=== PATIENT | female | born 1945 | race Caucasian/White ===

== ENCOUNTER 2017-03-11 12:42 | Emergency (ER) | payer MEDICARE, MEDICAID ==
[~2017-03-11] VITALS: Ht 162.6 cm; Wt 52.0 kg
[2017-03-11] MEDS ORDERED: AZIT250T6 PO (12:53)
[2017-03-11] MEDS ORDERED: LABE100T PO (12:53)
[2017-03-11] MEDS ORDERED: TRIA15OI8 TP (12:53)
[2017-03-11] MEDS ORDERED: SODIUM CHLORIDE 0.9% 1,000 ML IV ONE (13:32)
[2017-03-11 14:45] LABS: BASOPHILS % 0.2 % (0.0-2.0); EOSINOPHILS % 0.3 % (0.0-5.0); HEMATOCRIT. 41.4 % (36.0-48.0); LYMPHOCYTES % 7.6 % (20.0-50.0); MEAN CORPUSCULAR HEMOGLOBIN 28.6 pg (28.0-32.0); MEAN CORPUSCULAR VOLUME 84.4 fL (81.0-99.0); MEAN PLATELET VOLUME 9.3 fl (7.4-10.4); MONOCYTES % 4.7 % (2.0-8.0); NEUTROPHILS % 87.2 % (40.0-76.0); PLATELET 167 x1000/uL (130-400); RED BLOOD CELL COUNT 4.91 mill/uL (4.2-5.4); RED CELL DISTRIBUTION WIDTH 12.8 % (11.6-14.6)
[2017-03-11 14:49] LABS: CHLORIDE 101 mEq/L (98-107)
[2017-03-11 14:57] LABS: CARBON DIOXIDE 30 mEq/L (21-32)
[2017-03-11 17:53] VITALS: BP 149/75
== END 2017-03-11 18:06 | disposition home or self-care (01) ==
LOC: ER 12:42
DX: B34.9 Viral infection, unspecified (principal); E78.00 Pure hypercholesterolemia, unspecified; J44.9 Chronic obstructive pulmonary disease, unspecified
CPT/HCPCS: 36415; 71010; 80053; 85025; 87040; 96360; 96361; 99285; J7030

== ENCOUNTER 2023-05-25 19:01 | Emergency (ER) | payer MEDICARE, MEDICAID ==
[~2023-05-25] VITALS: Ht 157.5 cm; Wt 45.1 kg
[~2023-05-25 19:01] MED LIST: AZIT250T12 PO; LABE100T9 PO; TRIA15OI8 TP
[2023-05-25 19:19] VITALS: O2SAT 97
[2023-05-25 21:14] LABS: BASOPHILS % 0.4 % (0.0-2.0); EOSINOPHILS % 2.5 % (0.0-5.0); HEMATOCRIT. 41.9 % (36.0-48.0); HEMOGLOBIN. 13.7 g/dL (12.0-16.0); LYMPHOCYTES % 23.5 % (20.0-50.0); MEAN CORPUSCULAR HEMOGLOBIN 28.8 pg (28.0-32.0); MEAN CORPUSCULAR HGB CONC 32.8 g/dL (31.0-37.0); MEAN CORPUSCULAR VOLUME 87.9 fL (81.0-99.0); MEAN PLATELET VOLUME 9.4 fl (7.4-10.4); MONOCYTES % 8.8 % (2.0-8.0); NEUTROPHILS % 64.8 % (40.0-76.0); PLATELET 194 x1000/uL (130-400); RED BLOOD CELL COUNT 4.77 mill/uL (4.2-5.4); RED CELL DISTRIBUTION WIDTH 13.1 % (11.6-14.6); WHITE BLOOD COUNT 5.5 x1000/uL (4.5-11.0)
[2023-05-25 21:25] LABS: PROTHROMBIN TIME 10.7 sec (9.6-11.0)
[2023-05-25 22:00] LABS: ALANINE AMINOTRANSFERASE 11 IU/L (10-49); ALBUMIN 4.2 g/dL (3.2-4.8); ASPARTATE AMINOTRANSFERASE 20 IU/L (<34); CALCIUM 9.9 mg/dL (8.7-10.4); CARBON DIOXIDE 26 mEq/L (21-32); CHLORIDE 104 mEq/L (98-107); CREATININE 0.4 mg/dL (0.6-1.0); GLUCOSE 102 mg/dL (70-105); POTASSIUM 3.5 mEq/L (3.5-5.1); PROTEIN TOTAL 8.2 g/dL (6.0-8.3); SODIUM 138 mEq/L (136-145); TROPONIN I HIGH SENSITIVITY 6 ng/L (3.0-34); UREA NITROGEN BLOOD 13 mg/dL (9-23)
[2023-05-25 22:26] LABS: CLARITY URINE CLEAR (CLEAR); COLOR URINE YELLOW (YELLOW); GLUCOSE URINE NEGATIVE (NEGATIVE); KETONES URINE 1+ (NEGATIVE); LEUKOCYTE ESTERASE URINE TRACE (NEGATIVE); NITRITE URINE NEGATIVE (NEGATIVE); OCCULT BLOOD URINE NEGATIVE (NEGATIVE); PH URINE 6.5 (4.5-8.0); PROTEIN URINE 1+ (NEGATIVE); SPECIFIC GRAVITY URINE 1.013 (1.005-1.030); UROBILINOGEN URINE 0.2 E.U./dL (0.2-1.0)
[2023-05-25 22:43] LABS: BACTERIA URINE 1+
[2023-05-25 22:44] LABS: RBC URINE 0-2 /hpf (0-2); SQUAMOUS EPITHELIAL CELL URINE 1+ /lpf (RARE/1+); WBC URINE 0-2 /hpf (0-2)
[2023-05-26] MEDS ORDERED: POLY119P2 MT (00:17)
[2023-05-26 00:40] VITALS: BP 128/68; PULSE 70; RESP 16; TEMP 97.1
== END 2023-05-26 00:42 | disposition home or self-care (01) ==
LOC: ER 19:01
DX: R10.31 Right lower quadrant pain (principal); J44.9 Chronic obstructive pulmonary disease, unspecified; I10 Essential (primary) hypertension
CPT/HCPCS: 36415; 74177; 80053; 81003; 84484; 85025; 93005; 99285

== ENCOUNTER 2024-01-06 12:53 | Inpatient (IN) | payer MEDICARE, MEDICAID ==
[~2024-01-06] VITALS: Ht 165.1 cm; Wt 48.1 kg
[~2024-01-06 12:53] MED LIST changes: +POLY119P2 MT
[2024-01-06 13:26] LABS: HEMATOCRIT. 39.2 % (36.0-48.0); HEMOGLOBIN. 13.6 g/dL (12.0-16.0); MEAN CORPUSCULAR HGB CONC 34.8 g/dL (31.0-37.0); MEAN CORPUSCULAR VOLUME 86.4 fL (81.0-99.0); MEAN PLATELET VOLUME 9.8 fl (7.4-10.4); PLATELET 246 x1000/uL (130-400); RED BLOOD CELL COUNT 4.53 mill/uL (4.2-5.4); RED CELL DISTRIBUTION WIDTH 12.5 % (11.6-14.6); WHITE BLOOD COUNT 13.8 x1000/uL (4.5-11.0)
[2024-01-06 13:31] LABS: DIFFERENTIAL COMMENT 1
[2024-01-06] MEDS: ALBUTEROL (0.083%) 2.5MG/3ML NEB HHN STA (13:39)
[2024-01-06 13:40] VITALS: PULSE 99; RESP 20; O2SAT 95
[2024-01-06] MEDS: IPRATROPIUM BROMIDE (0.02%) 0.5MG/2.5ML NEB HHN STA (13:40)
[2024-01-06] MEDS: METHYLPREDNISOLONE SOD SUCC 125MG/2ML (ACT-O-VIAL) IV STA (13:40)
[2024-01-06 14:31] LABS: CARBON DIOXIDE 27 mEq/L (21-32); CHLORIDE 98 mEq/L (98-107); POTASSIUM 4.1 mEq/L (3.5-5.1); SODIUM 134 mEq/L (136-145)
[2024-01-06 14:32] LABS: CALCIUM 9.5 mg/dL (8.7-10.4)
[2024-01-06 14:36] LABS: CREATININE 0.6 mg/dL (0.6-1.0)
[2024-01-06 14:37] LABS: GLUCOSE 116 mg/dL (70-105); TROPONIN I HIGH SENSITIVITY 7 ng/L (3.0-34); UREA NITROGEN BLOOD 16 mg/dL (9-23)
[2024-01-06 15:31] LABS: PLATELET ESTIMATE NORMAL
[2024-01-06] MEDS ORDERED: IPRATROPIUM BROMIDE (0.02%) 0.5MG/2.5ML NEB HHN PRN (16:00)
[2024-01-06] MEDS ORDERED: MAGNESIUM/ALUMINUM HYDROXIDE/SIMETHICONE 30ML UDC PO PRN (16:00)
[2024-01-06] MEDS ORDERED: LORAZEPAM 0.5MG TABLET PO PRN (16:00)
[2024-01-06] MEDS ORDERED: CLONIDINE 0.1MG TABLET PO PRN (16:00)
[2024-01-06] MEDS ORDERED: ACETAMINOPHEN 325MG TABLET PO PRN ×2 (16:00)
[2024-01-06] MEDS ORDERED: DIPHENHYDRAMINE 50MG/ML VIAL IV PRN (16:00)
[2024-01-06] MEDS: SODIUM CHLORIDE 0.9% 1000ML BAG (SEPSIS BOLUS) IV ONE (16:28)
[2024-01-06] MEDS: DILTIAZEM HCL 5MG/ML 5ML VIAL IV NR (16:40)
[2024-01-06] MEDS: CEFTRIAXONE 2GM/50ML 50 ML IV ONE (16:41)
[2024-01-06 16:55] LABS: LACTIC ACID 2.7 mmol/L (0.4-2.0)
[2024-01-06] MEDS ORDERED: DEXTROSE 50% WATER 50ML SYRINGE IV PRN (17:15)
[2024-01-06 17:38] LABS: CLARITY URINE CLEAR (CLEAR); COLOR URINE YELLOW (YELLOW); GLUCOSE URINE 2+ (NEGATIVE); KETONES URINE 2+ (NEGATIVE); LEUKOCYTE ESTERASE URINE NEGATIVE (NEGATIVE); NITRITE URINE NEGATIVE (NEGATIVE); OCCULT BLOOD URINE 3+ (NEGATIVE); PROTEIN URINE 3+ (NEGATIVE); SPECIFIC GRAVITY URINE 1.011 (1.005-1.030)
[2024-01-06 17:57] LABS: BACTERIA URINE 2+; SQUAMOUS EPITHELIAL CELL URINE FEW /lpf (RARE/1+)
[2024-01-06 17:58] LABS: MUCUS URINE 2+ /lpf (< = 2+); RBC URINE 15-25 /hpf (0-2); WBC URINE 0-2 /hpf (0-2)
[2024-01-06] MEDS: AZITHROMYCIN 500MG/250ML 250 ML IV SCH (18:53)
[2024-01-06] MEDS: ENOXAPARIN 60MG/0.6ML SYR SUBCUT NR (20:07)
[2024-01-06 20:50] VITALS: BP 128/54; PULSE 74; RESP 18; TEMP 98
[2024-01-06] MEDS: BLOOD SUGAR DIAGNOSTIC STRIP TEST SCH (21:00)
[2024-01-06 21:15] VITALS: BP 102/42; PULSE 68; RESP 18; TEMP 97.5
[2024-01-06 21:20] VITALS: BP 102/42; PULSE 68; RESP 18; TEMP 97.5
[2024-01-06 22:16] LABS: PROTHROMBIN TIME 11.4 sec (9.6-11.0)
[2024-01-06] MEDS: METHYLPREDNISOLONE SOD SUCC 40MG/ML (ACT-O-VIAL) IV SCH (22:51)
[2024-01-07] VITALS: BP 107/43; PULSE 68; RESP 20; TEMP 98.4
[2024-01-07] MEDS: GUAIFENESIN 200MG/10ML SUGAR FREE UDC PO PRN (01:05)
[2024-01-07] MEDS ORDERED: ERGO1250 (03:37)
[2024-01-07] MEDS ORDERED: LEVO250T74 MT (03:37)
[2024-01-07] MEDS ORDERED: AMLO10TA80 MT (03:37)
[2024-01-07] MEDS ORDERED: AMLO5TAB88 MT (03:40)
[2024-01-07 04:00] VITALS: BP 99/60; PULSE 58; RESP 18; TEMP 96.4
[2024-01-07 06:54] LABS: CHLORIDE 102 mEq/L (98-107); POTASSIUM 3.6 mEq/L (3.5-5.1); SODIUM 137 mEq/L (136-145)
[2024-01-07 06:55] LABS: CALCIUM 9.5 mg/dL (8.7-10.4); CARBON DIOXIDE 28 mEq/L (21-32)
[2024-01-07 07:00] LABS: CREATININE 0.6 mg/dL (0.6-1.0); GLUCOSE 160 mg/dL (70-105); UREA NITROGEN BLOOD 18 mg/dL (9-23)
[2024-01-07 07:04] LABS: T4 FREE 1.08 ng/dL (0.89-1.76); THYROID STIMULATING HORMONE 0.64 uIU/mL (0.55-4.78)
[2024-01-07 07:09] LABS: HEMATOCRIT. 35.5 % (36.0-48.0); HEMOGLOBIN. 11.8 g/dL (12.0-16.0); MEAN CORPUSCULAR HEMOGLOBIN 28.7 pg (28.0-32.0); MEAN CORPUSCULAR HGB CONC 33.3 g/dL (31.0-37.0); MEAN PLATELET VOLUME 10.4 fl (7.4-10.4); PLATELET 191 x1000/uL (130-400); RED BLOOD CELL COUNT 4.12 mill/uL (4.2-5.4); RED CELL DISTRIBUTION WIDTH 12.6 % (11.6-14.6)
[2024-01-07 07:19] LABS: DIFFERENTIAL COMMENT 1
[2024-01-07 08:00] VITALS: BP 128/60; PULSE 70; RESP 18; TEMP 98.6
[2024-01-07] MEDS: AMLODIPINE 5MG TABLET PO SCH (09:13)
[2024-01-07] MEDS: ENOXAPARIN 60MG/0.6ML SYR SUBCUT SCH (09:16)
[2024-01-07 12:00] VITALS: BP 132/69; PULSE 72; RESP 18; TEMP 97.1
[2024-01-07 14:34] LABS: CLARITY URINE CLEAR (CLEAR); COLOR URINE YELLOW (YELLOW); GLUCOSE URINE TRACE (NEGATIVE); KETONES URINE NEGATIVE (NEGATIVE); LEUKOCYTE ESTERASE URINE TRACE (NEGATIVE); NITRITE URINE NEGATIVE (NEGATIVE); OCCULT BLOOD URINE 1+ (NEGATIVE); PH URINE 6.5 (4.5-8.0); PROTEIN URINE 1+ (NEGATIVE)
[2024-01-07 15:19] LABS: *AMPHETAMINES SCREEN URINE NEGATIVE (NEGATIVE); *BARBITURATES SCREEN URINE NEGATIVE (NEGATIVE); *BENZODIAZEPINES SCREEN URINE NEGATIVE (NEGATIVE); *COCAINE SCREEN URINE NEGATIVE (NEGATIVE); CANNABINOID URINE SCREEN NEGATIVE (NEGATIVE); ECSTASY MDMA SCREEN URINE NEGATIVE (NEGATIVE); METHADONE URINE SCREEN NEGATIVE (NEGATIVE); OPIATES URINE SCREEN NEGATIVE (NEGATIVE); PHENCYCLIDINE URINE SCREEN NEGATIVE (NEGATIVE)
[2024-01-07 15:33] LABS: FINE GRANULAR CASTS URINE 0-5 /lpf; SQUAMOUS EPITHELIAL CELL URINE 1+ /lpf (RARE/1+)
[2024-01-07 15:35] LABS: BACTERIA URINE NONE SEEN; RBC URINE 0-2 /hpf (0-2)
[2024-01-07 16:00] VITALS: BP 104/51; PULSE 78; RESP 18; TEMP 97.5
[2024-01-07 16:43] LABS: PLATELET ESTIMATE NORMAL
[2024-01-07] MEDS: AZITHROMYCIN 500MG/250ML 250 ML IV SCH (19:23)
[2024-01-07 20:00] VITALS: BP 116/64; PULSE 92; RESP 18; TEMP 97.5
[2024-01-07] MEDS: ATORVASTATIN CALCIUM 40MG TABLET PO SCH (21:04)
[2024-01-07] MEDS ORDERED: IOHEXOL-350 100 ML BOTTLE ONE (21:44)
[2024-01-07] MEDS ORDERED: IPRATROPIUM/ALBUTEROL 0.5-3(2.5)MG/3ML NEB HHN PRN (23:15)
[2024-01-08] VITALS (10 sets, daily range): BP systolic 100–129; BP diastolic 42–59; PULSE 56–89; RESP 18–20; TEMP 96.3–98.1; O2SAT 93
[2024-01-08] MEDS: ACETYLCYSTEINE 200MG/ML 20% VIAL 4ML INH SCH (03:30)
[2024-01-08] MEDS: DOCUSATE SODIUM 100MG CAPSULE PO PRN (08:36)
[2024-01-08] MEDS: IPRATROPIUM/ALBUTEROL 0.5-3(2.5)MG/3ML NEB HHN SCH (09:20)
[2024-01-08] MEDS: PIPERACILLIN/TAZO 3.375G/50ML 50 ML IV SCH (12:28)
[2024-01-08 13:12] LABS: HEMATOCRIT. 39.2 % (36.0-48.0); HEMOGLOBIN. 12.8 g/dL (12.0-16.0); MEAN CORPUSCULAR HEMOGLOBIN 28.5 pg (28.0-32.0); MEAN CORPUSCULAR HGB CONC 32.6 g/dL (31.0-37.0); MEAN CORPUSCULAR VOLUME 87.3 fL (81.0-99.0); MEAN PLATELET VOLUME 10.1 fl (7.4-10.4); PLATELET 253 x1000/uL (130-400); RED BLOOD CELL COUNT 4.49 mill/uL (4.2-5.4); RED CELL DISTRIBUTION WIDTH 12.9 % (11.6-14.6)
[2024-01-08 13:15] LABS: DIFFERENTIAL COMMENT 1
[2024-01-08 13:16] LABS: CHLORIDE 96 mEq/L (98-107); POTASSIUM 3.3 mEq/L (3.5-5.1); SODIUM 131 mEq/L (136-145)
[2024-01-08 13:17] LABS: CARBON DIOXIDE 25 mEq/L (21-32)
[2024-01-08 13:18] LABS: CALCIUM 9.3 mg/dL (8.7-10.4)
[2024-01-08 13:22] LABS: CREATININE 0.7 mg/dL (0.6-1.0); GLUCOSE 307 mg/dL (70-105)
[2024-01-08 13:23] LABS: UREA NITROGEN BLOOD 24 mg/dL (9-23)
[2024-01-08] MEDS: POTASSIUM CHLORIDE 20MEQ TABLET SR PO NR (14:44)
[2024-01-08] MEDS ORDERED: CEFTRIAXONE 1GM/50ML 50 ML IV SCH (16:00)
[2024-01-08] MEDS: METHYLPREDNISOLONE SOD SUCC 40MG/ML (ACT-O-VIAL) IV SCH (17:09)
[2024-01-08] MEDS ORDERED: METHYLPREDNISOLONE SOD SUCC IV ONE (18:00)
[2024-01-08] MEDS ORDERED: DEXT 5% IV ONE (18:00)
[2024-01-08] MEDS ORDERED: WATER IV ONE (18:00)
[2024-01-08 19:37] LABS: PLATELET ESTIMATE NORMAL
[2024-01-08 22:00] LABS: POTASSIUM 3.6 mEq/L (3.5-5.1)
[2024-01-09] VITALS (11 sets, daily range): BP systolic 103–134; BP diastolic 45–66; PULSE 61–71; RESP 18–19; TEMP 97.1–98.1; O2SAT 94–97
[2024-01-09 07:56] LABS: DIFFERENTIAL COMMENT 1; HEMATOCRIT. 35.6 % (36.0-48.0); HEMOGLOBIN. 11.7 g/dL (12.0-16.0); MEAN CORPUSCULAR HEMOGLOBIN 28.6 pg (28.0-32.0); MEAN CORPUSCULAR VOLUME 86.6 fL (81.0-99.0); MEAN PLATELET VOLUME 10.5 fl (7.4-10.4); PLATELET 220 x1000/uL (130-400); RED BLOOD CELL COUNT 4.11 mill/uL (4.2-5.4); RED CELL DISTRIBUTION WIDTH 12.6 % (11.6-14.6); WHITE BLOOD COUNT 12.7 x1000/uL (4.5-11.0)
[2024-01-09 08:38] LABS: CHLORIDE 103 mEq/L (98-107); POTASSIUM 3.6 mEq/L (3.5-5.1); SODIUM 138 mEq/L (136-145)
[2024-01-09 08:39] LABS: CARBON DIOXIDE 28 mEq/L (21-32)
[2024-01-09 08:40] LABS: CALCIUM 9.2 mg/dL (8.7-10.4)
[2024-01-09 08:44] LABS: CREATININE 0.7 mg/dL (0.6-1.0); GLUCOSE 141 mg/dL (70-105); UREA NITROGEN BLOOD 21 mg/dL (9-23)
[2024-01-09] MEDS: APIXABAN 5 MG TABLET PO SCH (10:55)
[2024-01-09 15:54] LABS: PLATELET ESTIMATE NORMAL
[2024-01-10] VITALS: BP 120/62; PULSE 66; RESP 20; TEMP 97.1
[2024-01-10 08:00] VITALS: BP 140/78; PULSE 61; RESP 20; TEMP 97.8
[2024-01-10 11:00] VITALS: BP 140/89; PULSE 85; TEMP 98.1; O2SAT 96
== END 2024-01-10 16:45 | disposition home or self-care (01) | DRG 871 ==
LOC: ER 12:53 → 5WST 15:40 → EDBEDREQ 15:52 → EDBEDREQTM 15:52 → 8WST 21:18
PROVIDERS: ADMIT Internal Medicine; ATTEND Internal Medicine
DX: A41.9 Sepsis, unspecified organism (principal); J18.9 Pneumonia, unspecified organism; J96.02 Acute respiratory failure with hypercapnia; J96.01 Acute respiratory failure with hypoxia; E87.1 Hypo-osmolality and hyponatremia; J44.0 Chronic obstructive pulmonary disease with (acute) lower respiratory infection; N39.0 Urinary tract infection, site not specified; J44.1 Chronic obstructive pulmonary disease with (acute) exacerbation; E87.20 Acidosis, unspecified; Z20.822 Contact with and (suspected) exposure to COVID-19; F41.9 Anxiety disorder, unspecified; R65.20 Severe sepsis without septic shock; I10 Essential (primary) hypertension; E11.65 Type 2 diabetes mellitus with hyperglycemia; E78.5 Hyperlipidemia, unspecified; E87.6 Hypokalemia; B96.89 Other specified bacterial agents as the cause of diseases classified elsewhere; I25.10 Atherosclerotic heart disease of native coronary artery without angina pectoris; I48.0 Paroxysmal atrial fibrillation; Z79.01 Long term (current) use of anticoagulants; Z79.899 Other long term (current) drug therapy
CPT/HCPCS: 36415; 71045; 71275; 80048; 80305; 81003; 82962; 83036; 83605; 83880; 84132; 84145; 84439; 84443; 84484; 85025; 85379; 87077; 87426; 93005; 93306; 93970; 94640; 99291; J0456; J0696; J1650; J2543; J2919; J2920; J3490; J7030; J7608; Q9967

== ENCOUNTER 2024-04-08 09:10 | Emergency (ER) | payer MEDICARE, MEDICAID ==
[~2024-04-08] VITALS: Ht 165.1 cm; Wt 45.4 kg
[~2024-04-08 09:10] MED LIST changes: +AMLO5TAB88 MT; +ERGO1250; +LEVO250T74 MT; -POLY119P2 MT; -TRIA15OI8 TP
[2024-04-08 09:13] VITALS: O2SAT 100
[2024-04-08 09:55] LABS: CHLORIDE 106 mEq/L (98-107); POTASSIUM 3.6 mEq/L (3.5-5.1); SODIUM 141 mEq/L (136-145)
[2024-04-08 09:56] LABS: CALCIUM 9.8 mg/dL (8.7-10.4); CARBON DIOXIDE 30 mEq/L (21-32)
[2024-04-08 10:01] LABS: CREATININE 0.6 mg/dL (0.6-1.0); GLUCOSE 102 mg/dL (70-105); UREA NITROGEN BLOOD 10 mg/dL (9-23)
[2024-04-08 10:03] LABS: ALANINE AMINOTRANSFERASE 9 IU/L (10-49); ALBUMIN 4.3 g/dL (3.2-4.8); ASPARTATE AMINOTRANSFERASE 19 IU/L (<34); BILIRUBIN DIRECT 0.3 mg/dL (<=3.0); BILIRUBIN TOTAL 1.4 mg/dL (0.1-1.0); PROTEIN TOTAL 7.8 g/dL (6.0-8.3)
[2024-04-08 10:40] LABS: CLARITY URINE CLEAR (CLEAR); COLOR URINE YELLOW (YELLOW); GLUCOSE URINE NEGATIVE (NEGATIVE); KETONES URINE TRACE (NEGATIVE); LEUKOCYTE ESTERASE URINE 1+ (NEGATIVE); NITRITE URINE NEGATIVE (NEGATIVE); OCCULT BLOOD URINE NEGATIVE (NEGATIVE); PROTEIN URINE 1+ (NEGATIVE); SPECIFIC GRAVITY URINE 1.013 (1.005-1.030); UROBILINOGEN URINE 0.2 E.U./dL (0.2-1.0)
[2024-04-08 11:04] LABS: MUCUS URINE TRACE /lpf (< = 2+)
[2024-04-08 11:05] LABS: SQUAMOUS EPITHELIAL CELL URINE FEW /lpf (RARE/1+)
[2024-04-08 11:06] LABS: BACTERIA URINE TRACE; RBC URINE 0-2 /hpf (0-2)
[2024-04-08 13:18] LABS: BASOPHILS % 0.6 % (0.0-2.0); EOSINOPHILS % 0.9 % (0.0-5.0); HEMATOCRIT. 40.4 % (36.0-48.0); HEMOGLOBIN. 13.5 g/dL (12.0-16.0); LYMPHOCYTES % 23.1 % (20.0-50.0); MEAN CORPUSCULAR HEMOGLOBIN 29.6 pg (28.0-32.0); MEAN CORPUSCULAR HGB CONC 33.5 g/dL (31.0-37.0); MEAN CORPUSCULAR VOLUME 88.4 fL (81.0-99.0); MEAN PLATELET VOLUME 10.1 fl (7.4-10.4); MONOCYTES % 6.9 % (2.0-8.0); NEUTROPHILS % 68.5 % (40.0-76.0); PLATELET 238 x1000/uL (130-400); RED BLOOD CELL COUNT 4.57 mill/uL (4.2-5.4); RED CELL DISTRIBUTION WIDTH 12.9 % (11.6-14.6); WHITE BLOOD COUNT 4.5 x1000/uL (4.5-11.0)
[2024-04-08] MEDS ORDERED: IOHEXOL-300 100 ML BOTTLE ONE (13:45)
[2024-04-08] MEDS ORDERED: CEPH500C2 MT (13:45)
[2024-04-08] MEDS ORDERED: ACET-2708 MT (13:47)
[2024-04-08 14:04] VITALS: BP 136/84; PULSE 87; RESP 18; TEMP 37.11408; O2SAT 100
== END 2024-04-08 14:06 | disposition home or self-care (01) ==
LOC: ER 09:10
DX: N39.0 Urinary tract infection, site not specified (principal); N28.9 Disorder of kidney and ureter, unspecified; I10 Essential (primary) hypertension; Z79.899 Other long term (current) drug therapy
CPT/HCPCS: 99285; 74177; 80076; 80048; 81003; 83690; 85025; 36415; 93005; Q9967